=== PATIENT | female | born 1980 | race Caucasian/White ===

== ENCOUNTER 2017-02-28 12:09 | Emergency (ER) | payer BC ==
--- NOTE | 2017-03-12 08:25 | ER ---
ADMIT: 02/28/2017 RM/LOC: ER [facility] MR#: [id number] [facility] [id number] FABIOLA SANDOVAL [address] [place] [id number] Emergency Room Report SEX: F AGE: 37 : 1980 DATE: 02/28/2017 ADDENDUM: A 37-year-old white female coming in with left flank pain. She does have a stone, distal in the ureter, small enough that should pass. CBC, chemistry, urine were negative. test was negative as well. Sent her home with [place] 5/325, #31 two p.o. q.6 p.r.n. pain. She should follow up with her doctor later this week. CONDITION ON DISCHARGE: Good. Bert Arias MD/ rosemary JOB #: [id number] CC: Bert Arias MD, Attending Physician Bert Fowler MD, Family Physician
== END 2017-02-28 15:10 | disposition home or self-care (01) ==
LOC: ER 12:09
DX: N20.1 Calculus of ureter (principal); I10 Essential (primary) hypertension; Z79.899 Other long term (current) drug therapy